=== PATIENT | female | born 1975 | race Caucasian/White ===

== ENCOUNTER 2016-09-27 05:58 | Day surgery (SDC) | payer OTHER ==
[~2016-09-27] VITALS: Ht 171.4 cm; Wt 139.7 kg
[2016-09-27] VITALS (11 sets, daily range): BP systolic 108–139; BP diastolic 59–89; PULSE 92–106; RESP 12–18; O2SAT 94–98
[~2016-09-27 05:58] MED LIST: ATRV10T PO; DEP500ER PO; DOXY100T2 PO; GLIM2TAB2 PO; HYDR-4003 PO; LINA5TAB PO; MEDR10TA PO; RES30 PO; TOPI50TA32 PO
[2016-09-27] MEDS ORDERED: Dexamethasone 4 mg/mL Inj ONE (05:59)
[2016-09-27] MEDS ORDERED: fentaNYL-PF 50 mCg/mL 2 mL Inj ONE (05:59)
[2016-09-27] MEDS: Lactated Ringer's 1,000 ML IV SCH ×2 (06:06→07:23)
--- NOTE | 2016-09-27 06:40 | PCM.HPANE ---
Patient Data Surgeon Admitting Provider: Attending Provider:Cherri Milton MD Primary Care Physician:Joshua Galindo MD Other Provider:[facility] Reason for Visit Thickened Endometrium Ht/WT & BMI Height (Feet): 5 Height (Inches): 7.5 Weight (Kilograms): 139.706 Body Mass Index 47.00 Allergies Coded Allergies: amitriptyline (Verified Allergy, Severe, seizures, 09/26/16) cephalexin (Verified Allergy, Intermediate, abdominal pain, 09/26/16) clindamycin (Verified Allergy, Unknown, iching dry skin, 09/26/16) Uncoded Allergies: PO MORPHINE (Allergy, Intermediate, unknown, 09/27/16) Past Anesthesia History Anesthesia History: Denies:: Anesthesia Reactions, Malignant Hyperthermia Diabetes History Hx Diabetes?: Yes (MOST RECENT HGB A1C 7.9) Type of Diabetes: Type II Glycemic Control: Oral Medication MRSA MRSA: No Medications Reported Medications Medroxyprogesterone Acetate (Provera)10 Mg [id number] Mg PO DAILY 09/26/16 Divalproex ER (Depakote ER)500 Mg Tablet1,000 Mg PO QPM Ref 0 *DAILY USE ONLY* Swallowed whole without chewing to avoid local irritation of the mouth and throat. 09/26/16 Divalproex ER (Depakote ER)500 Mg Tablet1,500 Mg PO QAM Ref 0 *DAILY USE ONLY* Swallowed whole without chewing to avoid local irritation of the mouth and throat. 09/26/16 Doxycycline Hyclate 100 Mg [id number] Mg PO DAILY 09/26/16 Linagliptin (Tradjenta)5 Mg Tablet5 Mg PO DAILY 09/26/16 Atorvastatin (Lipitor)10 Mg Tab60 Mg PO DAILY Ref 0 03/10/16 Temazepam 30 Mg Cap30 Mg PO HS PRN For Insomnia 30 Days Ref 0 11/20/15 Glimepiride 2 Mg Tablet8 Mg PO DAILYAC #30 TABLET Ref 0 11/20/15 Topiramate (Topamax)50 Mg Aileim00 Mg PO BID Ref 0 11/20/15 Discontinued Reported Medications Hydrocodone-Acetaminophen 5-325 mg 1 Each Tablet1 Tablet PO HS PRN For Pain Ref 0 09/26/16 Doxycycline Monohyd 100 Mg Lerdgu680 Mg PO DAILY Ref 0 11/20/[address] (Depakote DR)125 Mg [id number] Mg PO BID Ref 0 Swallowed whole without chewing to avoid local irritation of the mouth and throat. 11/20/15 History History of ENT Problems?: No HEENT History: Denies:: Abnormal Airway Cataracts Difficult Intubation Dysphagia Glaucoma Hearing Problem Sinus Problem TMJ Hx of Heart Problems?: Yes Cardiovascular History: Denies:: Hypertension (HYPERLIPIDEMIA) Hx of Respiratory Problem?: Yes Respiratory History: Positive for:: Use of C-PAP Machine (CHONG+--SLEEP STUDY CX & RESCHEDULED FOR 10/2016) Hx Neurologic Problems?: Yes Hx of GI Problems?: Yes Gastrointestinal History: Positive for:: Gall Bladder Disease (S/P IAM) Hx of Problems?: No Female Hx: Denies:: Currently (HX PCOS) Endometriosis (THICKENED ENDOMETRIUM=CURRENT PROBLEM) Skin History: Denies:: History Skin Disorders? Pressure Ulcers Hx Musculoskeletal Problems?: Yes Musculoskeletal History: Denies:: Back Injury (C/OF BACK PAIN) Hx of Psycho/Social Problems?: No Hx Surgeries?: Yes (SI JOINT INJECTIONS,IAM) Hx Any Other Health Problems?: Yes Other History: Denies:: Cancer Endocrine Disease Hospitalization Thyroid Disease Hx Diabetes: Yes (MOST RECENT HGB A1C 7.9) Have You Smoked inLast 12 mo: No Stop/Bang S-Snoring: Do You Snore Loudly: No T-Tired: feel tired, fatigued: Yes O-Obsered: Observed not breath: No P-Blood Pressure: treated: No B- Body Mass Index > 35 kg/m2: Yes A- Age over 50: No N- Neck Large Circumference: Yes G- Gender Male: No CHONG Total Score: 3 CHONG Risk Assessment: Low Risk, <3 Yes Risk Assessment Category Category 1A: Patient has history of documented sleep apnea, and HAS NOT received any narcotic, sedative or anesthesia administration during this stay. Category 1B: Patient has history of documented sleep apnea, and HAS received any narcotic , sedative or anesthesia administration during this stay Category 2: Patient has SUSPECTED Obstructive Sleep Apnea, and HAS received any narcotic , sedative or anesthesia administration during this stay. Category 3: Patient has SUSPECTED Obstructive Sleep Apnea and HAS NOT received narcotic, sedative or anesthesia administration during this stay. Category 4: Outpatient in Procedural Areas with known sleep apnea or who screen positive for High Risk via the STOP/BANG questionnaire. Exam Exam Vital Signs Vital Signs Date Time Temp Pulse Resp B/P Pulse Ox O2 Delivery O2 Flow Rate FiO2 09/27/16 06:30 92 16 117/72 97 Room Air General Appearance: Alert, Oriented X3, Cooperative, No Acute Distress HEENT/AIRWAY: MP 2 Lungs: Clear to Auscultation, Normal Air Movement Heart: Exam Unremarkable, Regular Rate/Rhythm, No Murmurs/Rubs/Gallops Meds/Labs/Diagnostics Admission Meds Current Medications Lactated Ringer's (Lr) 1,000 ml @ 120 mls/hr Q8H20M IV Last administered on t 06:06; Start 09/27/16 at 05:00; Stop 09/27/16 at 13:19 Plan Impression Patient chart reviewed, patient interviewed and anesthestic plan with risks, benefits, and alternatives discussed, and informed consent obtained. ASA Physical Status: ASA2 Mod Systemic Disease Bene/Risks/Altern/Consents: Yes HP Complete Prior to Induction: Yes Dudley Park MD Sep 27, 2016 06:40
[2016-09-27 07:16] LABS: BASOPHILS % (AUTO) 0.3 % (0-3); EOSINOPHILS % (AUTO) 2.6 % (0-5); MONOCYTES % (AUTO) 8.1 % (4-12); Mean Corpuscular Hemoglobin 31.7 pg (27.0-35.0); Mean Corpuscular Volume 95.4 fL (81-100); NEUTROPHILS % (AUTO) 34.8 % (40-74); Platelet Count 244 bil/L (150-400)
[2016-09-27] MEDS ORDERED: Lactated Ringer's 1,000 ML IV SCH (07:49)
[2016-09-27] MEDS ORDERED: Lactated Ringer's 500 ML IV PRN (07:49)
[2016-09-27] MEDS ORDERED: Atropine 0.4 mg/mL Inj IVPUSH PRN (07:50)
[2016-09-27] MEDS ORDERED: fentaNYL-PF 50 mCg/mL 2 mL Inj IVPUSH PRN (07:50)
[2016-09-27] MEDS ORDERED: MetoCLOpramide 5 mg/mL 2 mL Inj IVPUSH PRN ×2 (07:50→08:40)
[2016-09-27] MEDS ORDERED: Dexamethasone 4 mg/mL Inj IVPUSH PRN (07:50)
[2016-09-27] MEDS ORDERED: Phenylephrine 10,000 mCg/mL Inj IVPUSH PRN (07:50)
[2016-09-27] MEDS ORDERED: Labetalol 5 mg/mL 4 mL Inj IV PRN (07:50)
[2016-09-27] MEDS ORDERED: EPHEDrine Sulfate 50 mg/mL Inj IVPUSH PRN (07:50)
[2016-09-27] MEDS ORDERED: HYDROmorphone 1 mg/mL Inj IVPUSH PRN ×2 (07:50→08:40)
[2016-09-27] MEDS ORDERED: Ondansetron 2 mg/mL 2 mL Inj IVPUSH PRN ×2 (07:50→08:40)
[2016-09-27] MEDS ORDERED: Bupivacaine-MPF 0.25%/EPI 30 mL Inj INJ ONE (08:17)
[2016-09-27] MEDS ORDERED: diphenhydrAMINE 25 mg Capsule PO PRN (08:40)
--- NOTE | 2016-09-27 08:43 | PCM.DIGYN ---
Surgical Discharge Instruction Dates of Hospitalization Date of Hospital Admission Providers Admitting Physician: Primary Care Physician: Joshua Galindo MD Attending Physician: Cherri Milton MD Diet Discharge Diet: No restrictions Activity Discharge Activity-General: Try not to overdue, Be up and about, Balance rest and activity, Activity as pain allows, No lifting >15 pounds for 2 weeks, No driving while taking narcotic Dressing and Incisional Care Hygiene: May shower, NO bathtub, hot tub or whirlpool Additional Instructions Discharge Instructions You have had an uncomplicated hysteroscopy with dilation and curettage. Please call with severe pain, temperature greater than 100.5 degrees, heavy vaginal bleeding filling more than a pad per hour or malodorous vaginal discharge. Follow Up Plan Follow-up Provider (F9): Cherri Milton MD Follow-up appointment: Weeks (2) Call your provider for: Fever, Chills, Heavy vaginal bleeding, Increasing pain Cherri Milton MD Sep 27, 2016 08:43
--- NOTE | 2016-09-27 08:44 | PCM.ANEP1 ---
Post Anesthesia Phase 1 PACU Phase 1 Assessment Vital Signs Vital Signs Date Time Temp Pulse Resp B/P Pulse Ox O2 Delivery O2 Flow Rate FiO2 09/27/16 08:35 97 15 122/71 94 Room Air 09/27/16 08:30 37.0 106 16 134/72 98 Simple Mask 8 09/27/16 06:45 36.3 92 16 117/72 97 Room Air 09/27/16 06:30 92 16 117/72 97 Room Air Level of Alertness: Awake, talking ESCALONA's with Equal Strength: Yes Pain: No Nausea or Vomiting: No Oxygen Delivery: Simple Mask Lungs: Clear to Auscultation, Normal Air Movement Dudley Park MD Sep 27, 2016 08:44
--- NOTE | 2016-09-27 09:12 | OP ---
[address] [address] OPERATIVE REPORT PATIENT: TOMASZ ALBERTS : 1975 MR#: [id number] ADMIT: 09/27/2016 JOB ID: [id number] DATE OF SURGERY: 09/27/2016 PREOPERATIVE DIAGNOSIS(ES): Abnormal uterine bleeding. POSTOPERATIVE DIAGNOSIS(ES): Abnormal uterine bleeding. PROCEDURE PERFORMED: 1. Hysteroscopy. 2. MyoSure polypectomy. 3. Dilation and curettage. SURGEON: Cherri Milton MD. ANESTHESIA: General endotracheal anesthesia. ESTIMATED BLOOD LOSS: 30 cc. FLUID REPLACEMENT: Crystalloid with a fluid deficit of 290 from the hysteroscope at the completion the procedure. URINE OUTPUT: Straight catheterized for 400 cc at the start of the procedure. FINDINGS: A 9 cm-sized uterus with thickened endometrium with polypoid tissue present. COMPLICATIONS: None apparent. INDICATIONS: This is a 41-year-old, G0 female who presented to our clinic for evaluation of abnormal uterine bleeding. She had oligomenorrhea but then periods with long episodes of bleeding as well. She was morbidly obese and nulliparous, and given the entire clinical picture, decision was made to proceed with an in-office endometrial biopsy, which was not successful due to patient intolerance. After this, she was then consented to undergo a hysteroscopy with dilation and curettage but because of her complex past medical history that included morbid obesity, type 2 diabetes mellitus, hyperlipidemia and obstructive sleep apnea, she was referred back to her primary care provider for preoperative clearance. When this was obtained, she presented to the operating room today to undergo the above planned procedure. DESCRIPTION OF PROCEDURE: The patient was taken to the operating room. She was placed in the dorsal lithotomy position, prepped and draped in the usual sterile fashion for hysteroscopy. A bivalved speculum was placed, and her cervix was noted to be high in the vaginal vault. Her cervix was nulliparous in appearance. The anterior lip of her cervix was grasped with a tenaculum and she was sounded to 9 cm. She was then serially dilated to a size 7 to allow for the MyoSure hysteroscope. She was noted to have thickened endometrial tissue, as well as an endometrial polyp. Using the MyoSure device, this tissue was then removed until a better view of her endometrial cavity was obtained and her ostia were both identified. Following this, the hysteroscope was removed and a sharp curettage was then completed. The specimen was then sent to Pathology. The patient was noted to have a low pain tolerance with previous procedures, so a paracervical block was then completed at the completion the procedure with injection of 10 cc of 0.25% bupivacaine with epinephrine at 2 o'clock, 4 o'clock, 8 o'clock and 10 o'clock around the cervix. The tenaculum was removed, and the tenaculum sites were inspected and noted to be hemostatic. The speculum was removed from the vagina. There was noted to be a small hymenal ring tear, which was rendered hemostatic with the use of silver nitrate. The patient tolerated this procedure well. Recovered in PACU. All sponge, needle and instrument counts were correct at the completion the procedure. ANDRESSA
[2016-09-27] MEDS: oxyCODONE-Acetamin 5-325 mg Tablet PO PRN ×2 (09:32→10:09)
--- NOTE | 2016-09-28 15:16 | PATH ---
SURGICAL PATHOLOGY Attending Physician:Cherri Milton, CASE STATUS: Signed Out * Amended * PATIENT NAME: TOMASZ ALBERTS PID: [id number] : 1975 DATE COLLECTED:09/27/2016 20:50 SPECIMEN: Endometrium, Curettage CLINICAL HISTORY: ABNORMAL UTERINE BLEEDING 1). ENDOMETRIAL CURETTINGS FINAL DIAGNOSIS: Endometrium, Curettings: 1. Endometrium with features of endometrial polyp and endometrioid neoplasm with features of complex hyperplasia with focal atypia and with extensive squamous metaplasia (see comment). 2. Fragments of squamous epithelium, negative for neoplasm. ICD10 CODE N84.0 N93.8 NOTE: Because of the unusual histologic appearance and the important clinical consequences, this case will be sent to Dr. Fidelia Barboza at the [facility] for her expert opinion. This case was reviewed in consultation at the [facility] by Dr. Fidelia Barboza and Dr. Emily Mancuso. "The endometrial curettings contain fragments of endometrium/endometrial polyps with focally crowded and architecturally complex glands largely involved by extensive squamous metaplasia. The majority of the epithelium is not atypical; however, focally there is cellular atypia identified." "Overall, we interpret these findings as neoplasm given the focally complex glands with features of complex atypical hyperplasia with extensive squamous metaplasia. We do not identify invasive carcinoma." The preliminary final diagnosis is noted below. Dr. Moscoso spoke to Melissa in Dr. Milton' s office regarding the results on 10/03/2016. PRIOR DIAGNOSIS: 1.ENDOMETRIUM, CURETTINGS: POLYPOID ENDOMETRIAL TISSUE WITH CROWDED GLANDS AND SQUAMOUS MORULAR CHANGES, SEE COMMENT. SEPARATE FRAGMENTS OF BENIGN SQUAMOUS EPITHELIUM AND MYOMETRIUM. GROSS DESCRIPTION: The specimen is received in one formalin filled container labeled with the patient's name, sublabeled "endometrial curettings" and consists of approximately a 2.0 cc aggregate of tissue, mucoid material and blood which is filled wrapped and entirely submitted in one cassette. 09/27/2016 DAC MICRO DESCRIPTION: See diagnosis. ICD-9 CODES: CPT CODES: 1: 86946 PROCEDURE/ADDENDA: Addendum SPI Addendum Diagnosis There is no change in the diagnosis. Addendum Comment This addendum was issued to report the results of slide consultation, however it was already reported in an amendment report. This addendum is being resulted for documentation purposes only. Please see [facility] report [id number] for complete details. Electronically Signed Out Beulah Moscoso MD AMENDMENT(S): Amended: 10/03/2016 by Sherry Post Reason:Additional Information Received The amendment is issued following outside slide consultation. Previous Signout Date: 09/28/2016 Electronically Signed Out Beulah Moscoso MD [facility] [address], [place] [address] Technical component performed at [facility] [address], [place], [address]
== END 2016-09-27 23:59 | disposition home or self-care (01) ==
LOC: SAS 05:58
PROVIDERS: ATTEND Obstetrics & Gynecology
DX: N93.9 Abnormal uterine and vaginal bleeding, unspecified (principal); N84.0 Polyp of corpus uteri; R93.8 Abnormal findings on diagnostic imaging of other specified body structures; E11.9 Type 2 diabetes mellitus without complications; E78.5 Hyperlipidemia, unspecified; G47.33 Obstructive sleep apnea (adult) (pediatric); E66.01 Morbid (severe) obesity due to excess calories; Z68.42 Body mass index [BMI] 45.0-49.9, adult; Z79.84 Long term (current) use of oral hypoglycemic drugs
CPT/HCPCS: 57135; 58558; 85025; 88305; J1100; J1170; J2175; J2250; J3010; J7120